=== PATIENT | female | born 1940 | race Caucasian/White ===

== ENCOUNTER 2019-04-19 07:24 | Emergency (ER) | payer MEDICARE, OTHER, SELFPAY ==
[2019-04-19 07:30] VITALS: BP 152/58; PULSE 79; RESP 22; TEMP 36.8; O2SAT 100
[2019-04-19 07:37] LABS: Add Manual Diff / Slide Review NO; Basophils Absolute Auto 100 /uL (0-100); Basophils Percent Auto 0.3 % (0-2); Eosinophils Absolute Auto 0 /uL (0-450); Eosinophils Percent Auto 0.1 % (2-4); Hematocrit 40.4 % (36-46); Lymphocytes Absolute Auto 2300 /uL (1100-4500); Mean Corpuscular HGB Conc 34.8 % (30-36); Mean Corpuscular Hemoglobin 30.2 PG (26-34); Mean Corpuscular Volume 86.8 fL (80-100); Monocytes Absolute Auto 1300 /uL (0-900); Monocytes Percent Auto 7.6 % (3-14); Neutrophils Absolute Auto 12800 /uL (1500-7000); Platelet Count 237 X10^3/uL (150-400); Red Blood Cell Count 4.65 X10^6/uL (4.0-5.2); Red Cell Distribution Width 13.5 % (11.6-14.8); White Blood Cell Count 16.4 X10^3/uL (4.5-11.0)
[2019-04-19] MEDS: SODIUM CHLORIDE 0.9% 1,000 ML 1000 ML IV (07:37)
[2019-04-19] MEDS: ONDANSETRON 4 MG/2 ML INJ IV (07:37)
[2019-04-19 07:47] LABS: Alanine Aminotransferase 20 IU/L (9-52); Albumin 4.3 g/dL (3.5-5.0); Albumin Globulin Ratio 1.4 (1.0-2.8); Alkaline Phosphatase 65 U/L (38-126); Aspartate Aminotransferase 31 IU/L (14-36); Bilirubin Total 0.5 mg/dL (0.2-1.3); Blood Urea Nitrogen 13 mg/dL (7-17); Calcium 9.7 mg/dL (8.4-10.2); Carbon Dioxide 27 mmol/L (22-32); Chloride 98 mmol/L (98-107); Creatine Kinase 70 U/L (30-135); Estimated Glomerular Filt Rate > 60.0 mL/min (>60); Glucose 140 mg/dL (80-110); HEMOLYSIS < 15 (0-50); Lipase 114 U/L (23-300); Sodium 136 mmol/L (137-145); Total Protein 7.3 g/dL (6.3-8.2)
[2019-04-19 07:56] LABS: Potassium 2.5 mmol/L (3.4-5.1)
[2019-04-19 07:58] LABS: Troponin I 0.013 ng/mL (0.01-0.034)
--- NOTE | 2019-04-19 08:05 | ED.NAVMDI ---
HPI - Nausea/Vomiting/Diarrhea General Chief complaint: Nausea/Vomiting/Diarrhea Stated complaint: weakness Time Seen by Provider: 04/19/19 07:29 Source: patient and EMS Mode of arrival: EMS Limitations: no limitations History of Present Illness HPI Narrative: Patient comes emergency department complaining feeling nauseated for the last few days and dry heaving last night. Patient states that she has been down in [place] where she has lived part-time with her . However, her recently , so her son drove her up from [place] a few days ago. Patient states that toward the end of the trip, she was beginning to feel nauseated and tired. Patient denies any abdominal pain. No chest pain or shortness of breath. No diarrhea. No dysuria or back pain that is new. No fevers. No cough. No calf pain or swelling. Patient states that she did not vomit the 1st day that she felt nauseated, and the 2nd day, her nausea seemed a little better. She states she did not have much of an appetite, and 8 only soup, gin drill, and crackers. However, these did stay down. Then, last night, she woke up feeling nauseated again and began to have dry heaves. Patient states that she is still feeling nauseated at this time. She denies any sick contacts. She states that she feels that she drink plenty of water in [place], though her [id number] states that she feels the patient became dehydrated on the trip up from [place]. Patient states she is also in the midst of planning her 's memorial service, which will be coming up in a few days. She states that she has a history of hypertension only, and takes hydrochlorothiazide and potassium. No recent dose changes in her medications. Related Data Home Medications Medication Instructions Recorded Confirmed hydrochlorothiazide 25 mg PO DAILY 04/19/19 04/19/19 potassium chloride [Klor-Con M20] 20 meq PO DAILY 04/19/19 04/19/19 Previous Rx's Medication Instructions Recorded ondansetron 4 mg PO Q6H PRN #14 tab 04/19/19 Allergies Allergy/AdvReac Type Severity Reaction Status Date / Time No Known Drug Allergies Allergy Verified 04/19/19 07:36 Review of Systems Review of Systems ROS Unobtainable: All systems reviewed & are unremarkable except as noted in HPI and below Constitutional Constitutional: Denies chills, Denies fatigue, Denies fever(s), Denies frequent falls, Denies lethargy and Denies weakness Eyes Eyes: Denies change in vision, Denies eye discharge, Denies irritation and Denies loss of vision ENT Ears, Nose, Mouth, and Throat: Denies change in voice, Denies dizziness, Denies neck pain, Denies sore throat and Denies throat swelling Cardiovascular Cardiovascular: Denies chest pain, Denies irregular heart rhythm, Denies lightheadedness, Denies palpitations, Denies dyspnea, Denies dyspnea on exertion and Denies orthopnea Respiratory Respiratory: Denies cough, Denies dyspnea, Denies dyspnea on exertion and Denies wheezing Gastrointestinal Gastrointestinal: Denies abdominal pain, Denies change in bowel habits, Denies diarrhea, Reports nausea and Denies vomiting Genitourinary Genitourinary: Denies hematuria, Denies flank pain, Denies urinary incontinence and Denies urinary urgency Musculoskeletal Musculoskeletal: Denies back pain, Denies muscle weakness, Denies neck pain, Denies numbness and Denies tingling Integumentary/Breasts Skin/Breast: Denies pruritus, Denies erythema, Denies rash and Denies wounds Neurologic Neurologic: Denies behavioral changes, Denies confusion, Denies dizziness, Denies frequent falls, Denies loss of vision, Denies numbness, Denies tingling and Denies weakness Psychiatric Psychiatric: Denies anxiety, Denies behavioral changes, Denies confusion, Denies depression, Denies homicidal ideation and Denies suicidal ideation Endocrine Endocrine: Denies fatigue, Denies flushing and Denies palpitations Hematologic/Lymphatic Hematologic/Lymphatic: Denies easy bruising Allergic/Immunologic Allergic/Immunologic: Denies urticaria, Denies throat swelling and Denies wheezing [facility] Medical History HTN (hypertension) (Acute) Surgical History No pertinent past surgical history (Acute) Social History Smoking Status: Former smoker Social History Smoking Status: Former smoker Exam Initial Vital Signs Initial Vital Signs: Vital Signs Temperature 98.2 F 04/19/19 07:30 Pulse Rate 79 04/19/19 07:30 Respiratory Rate 22 04/19/19 07:30 Blood Pressure 152/58 H 04/19/19 07:30 Pulse Oximetry 100 04/19/19 07:30 Const General: cooperative and well developed Nutritional Appearance: well nourished Orientation: alert, awake, oriented x3 and not confused [facility] Head: normocephalic and atraumatic Ears: external ears normal Nose: external nose normal and No nasal discharge Face and sinus: face symmetric and No dry mucous membranes Mouth: oral mucosae normal and moist mucous membranes Teeth and gingiva: dentition normal Eyes General: appearance normal, both eyes and all related structures Eyelids: eyelids normal Conjunctivae: conjunctivae normal Sclera: sclerae normal Pupils: PERRL EOM: EOM intact bilaterally Neck Neck: normal visual inspection, trachea midline, No lymphadenopathy, No midline deformity and No JVD Lymphatic: No lymphedema Chest Chest: normal inspection of the chest Resp Effort & Inspection: normal respiratory effort, able to speak in complete sentences, no respiratory distress and no use of accessory muscles Auscultation: clear to auscultation bilaterally, no rales, no rhonchi and no wheezes Cardio Rate: regular rate Rhythm: regular rhythm Heart Sounds: no click, no gallops, no murmurs and no rubs Pulses: normal peripheral pulses GI Inspection: non-distended Palpation: soft, no hepatosplenomegaly, No guarding, No pulsatile mass and No tender Auscultation: normal bowel sounds Back/Spine/Pelvis Back: No CVA tenderness Cervical Spine: cervical ROM normal and No pain with cervical ROM Thoracic/Lumbar Spine: thoracic and lumbar spine normal to inspection Skin General: no rashes or lesions noted, No jaundice and No petechiae Neuro General: alert, oriented x3, gait normal and no focal motor deficits Speech: speech normal Extrem General: full ROM, no pedal edema and no calf tenderness Psych Appearance: well kempt Mental Status: mental status grossly normal Attitude: cooperative Thought Content: normal and suicidality Judgment: judgment good Course Course Course Narrative: Patient was worked up with labs, UA, EKG, chest x-ray, and ultimately, head CT, and treated with IV fluids, Zofran, and later, potassium, when her potassium was found to be 2.5. Patient was treated with IV potassium in the emergency department. She was able to tolerate p.o. fluids without vomiting. I discussed with the patient that other than a leukocytosis, which is nonspecific at this point, her workup has been found to be negative. We have discussed home management of the symptoms with Zofran and clear liquids, as well as oral potassium replacement starting tomorrow. We have discussed the usual indications for return. There is no indication for admission at this time. Orders Ordered: Discontinued Medications Diphenhydramine HCl (Benadryl) 12.5 mg IV NOW ONE Stop: 04/19/19 09:16 Last Admin: 04/19/19 09:50 Dose: 12.5 mg Documented by: KARIN Sodium Chloride (Normal Saline 0.9%) 1,000 mls @ 1,000 mls/hr IV BOLUS ONE Stop: 04/19/19 08:28 Last Infusion: 04/19/19 09:46 Dose: 0 mls/hr Documented by: Admin: 04/19/19 07:37 Dose: 1,000 mls/hr Documented by: NAMAN Potassium Chloride 20 meq/ (Sodium Chloride) 260 mls @ 130 mls/hr IV NOW ONE Stop: 04/19/19 10:11 Last Infusion: 04/19/19 10:40 Dose: 0 mls/hr Documented by: KARIN Cosigned by: NAMAN Admin: 04/19/19 08:55 Dose: 130 mls/hr Documented by: KARIN Cosigned by: DELPHINEONESherri Ondansetron HCl (Zofran) 4 mg IV NOW ONE Stop: 04/19/19 07:30 Last Admin: 04/19/19 07:37 Dose: 4 mg Documented by: NAMAN Prochlorperazine (Compazine) 10 mg IV NOW ONE Stop: 04/19/19 09:16 Last Admin: 04/19/19 09:50 Dose: 10 mg Documented by: KARIN Vital Signs Vital signs: Vital Signs - 8 hr 04/19/19 07:30 Temperature 98.2 F Pulse Rate 79 Respiratory Rate 22 Blood Pressure 152/58 H Pulse Oximetry 100 MDM - Nausea/Vomiting/Diarrhea Medical Records Attestation: I reviewed the patient's medical records. Lab Data Attestation: I reviewed the patient's lab results. Result diagrams: 04/19/19 07:15 04/19/19 07:15 Labs: Lab Results 04/19/19 04/19/19 04/19/19 Range/Units 07:15 07:15 09:00 WBC 16.4 H (4.5-11.0) X10^3/uL RBC 4.65 (4.0-5.2) X10^6/uL Hgb 14.0 (12.0-16.0) g/dL Hct 40.4 (36-46) % MCV 86.8 (80-100) fL MCH 30.2 (26-34) PG MCHC 34.8 (30-36) % RDW 13.5 (11.6-14.8) % Plt Count 237 (150-400) X10^3/uL Neut % (Auto) 78.0 H (50-75) % Lymph % (Auto) 14.0 L (25-40) % Holt % (Auto) 7.6 (3-14) % Eos % (Auto) 0.1 L (2-4) % Baso % (Auto) 0.3 (0-2) % Neut # (Auto) 82454 H (2072-4236) /uL Lymph # (Auto) 2300 (6010-5278) /uL Holt # (Auto) 1300 H (0-900) /uL Eos # (Auto) 0 (0-450) /uL Baso # (Auto) 100 (0-100) /uL Sodium 136 L (137-145) mmol/L Potassium 2.5 L* (3.4-5.1) mmol/L Chloride 98 (98-107) mmol/L Carbon Dioxide 27 (22-32) mmol/L BUN 13 (7-17) mg/dL Creatinine 0.50 L (0.52-1.04) mg/dL Estimated GFR > 60.0 (>60) mL/min BUN/Creatinine Ratio 26.0 H (6-22) Glucose 140 H (80-110) mg/dL Calcium 9.7 (8.4-10.2) mg/dL Total Bilirubin 0.5 (0.2-1.3) mg/dL AST 31 (14-36) IU/L ALT 20 (9-52) IU/L Alkaline Phosphatase 65 (38-126) U/L Total Creatine Kinase 70 (30-135) U/L CK-MB (CK-2) TNP CK-MB (CK-2) Rel Index TNP Troponin I 0.013 (0.01-0.034) ng/mL Total Protein 7.3 (6.3-8.2) g/dL Albumin 4.3 (3.5-5.0) g/dL Globulin 3.0 (1.7-4.1) g/dL Albumin/Globulin Ratio 1.4 (1.0-2.8) Lipase 114 (23-300) U/L Urine Color Yellow Urine Appearance Clear Urine pH 7.0 (4.5-8.0) Ur Specific [place] 1.010 (1.000-1.035) Urine Protein Trace H (Negative) Urine Glucose (UA) Negative (Negative) g/dL Urine Ketones 2+ H (NEGATIVE) Urine Occult Blood Negative (Negative) Urine Nitrate Negative (Negative) Urine Bilirubin Negative (NEGATIVE) Urine Urobilinogen 0.2 (0.2) E.U./dL Ur Leukocyte Esterase Negative (NEGATIVE) Urine RBC None seen (0-5/HPF) Urine WBC None seen (0-5/HPF) Ur Squamous Epith Cells 1-5 /hpf (0-5/HPF) Urine Bacteria None seen (None) Urine Mucus 2+ H (Negative) Ur Culture Indicated? Cult not indicated Imaging Data Chest x-ray: Radiologist's impression: PROCEDURE: XR CHEST 1V INDICATIONS: central line placement TECHNIQUE: One view of the chest was acquired. COMPARISON: None. FINDINGS: Surgical changes and devices: None. Lungs and pleura: On this semiupright portable chest examination, no large pneumothorax or large pleural effusions are seen. No focal infiltrates are seen. Lungs are hyperexpanded. Mediastinum: The cardiac contours are within normal limits. The aorta demonstrates calcification and tortuosity. Bones and chest wall: Age-appropriate bony degenerative changes are seen. No suspicious bony lesions. Overlying soft tissues appear unremarkable. IMPRESSION: No central line is seen. Portable chest within normal limits, with hyperexpanded lungs noted. Dictated by: Dyllan Jara M.D. on 04/19/2019 at 9:36 Approved by: Dyllan Jara M.D. on 04/19/2019 at 9:36 CT scan - head: Radiologist's impression: PROCEDURE: CT HEAD/BRAIN WO CON INDICATIONS: altered loc TECHNIQUE: Noncontrast 4.5 mm thick angled axial sections acquired from the foramen magnum to the vertex, with coronal and sagittal reformats. For radiation dose reduction, the following was used: automated exposure control, adjustment of mA and/or kV according to patient size. COMPARISON: None. FINDINGS: Image quality: Excellent. CSF spaces: Basal cisterns are patent. No extra-axial fluid collections. The ventricles are symmetric in size and shape. Brain: No intracranial bleeds or masses. There is cerebral volume loss for age, with resultant ventricular and sulcal prominence. There are periventricular and deep white matter chronic small vessel ischemic changes. There is intracranial internal carotid artery atherosclerosis. Skull and face: Calvarium and visualized facial bones appear intact, without suspicious lesions. Note is made of bilateral globe surgery, likely related to lens replacements. Sinuses: Visualized sinuses and mastoids are clear. IMPRESSION: Unremarkable intracranial study for age, without an imaging explanation for the presenting symptoms. Note is made of age-appropriate brain parenchymal volume loss and chronic small vessel ischemic changes. Dictated by: Dyllan Jara M.D. on 04/19/2019 at 9:48 Approved by: Dyllan Jara M.D. on 04/19/2019 at 9:49 ECG Data Attestation: I personally reviewed and interpreted this ECG as follows: (See below) Interpretation: Twelve lead EKG performed April 19, 2019 at 7:29 a.m., as follows: Regular ventricular rhythm with a rate of 74 beats per minute [place] interval 201 millisecond QRS duration 154 millisecond QTC interval [address] T wave changes Interpretation: Normal sinus rhythm; right bundle-branch block; left anterior fascicular block; no signs of acute ischemia; abnormal EKG as interpreted by ED MD. Discharge Plan Departure Patient Disposition: Home Clinical Impression: Acute vomiting Discharge Date/Time: 04/19/19 12:18 Instructions: DI for Vomiting -- Adult Activity Restrictions/Additional Instructions: Your labs showed a mild elevation of your white blood cell count and moderately decreased potassium. The white cells are most likely elevated, secondary to your vomiting illness. There is no evidence of any bacterial infection at this time. We will have you double your potassium to 40 mg a day instead of 20, for the next week. Please also take the nausea medication, as needed. Prescriptions: New ondansetron 4 mg tablet,disintegrating 4 mg PO Q6H PRN (Reason: nausea and vomiting) Qty: 14 RF: 0 No Action potassium chloride [Klor-Con M20] 20 mEq Tablet,Er Particles/Crystals 20 meq PO DAILY RF: 0 hydrochlorothiazide 25 mg Tablet 25 mg PO DAILY RF: 0 Referrals: [facility] [Provider Group]
[2019-04-19] MEDS: POTASSIUM CHLORIDE 20 MEQ in SODIUM CHLORIDE 0.9% 250 ML 130 ML IV (08:55)
--- NOTE | 2019-04-19 09:19 | DI.CT.S_ITS ---
PROCEDURE: CT HEAD/BRAIN WO CON INDICATIONS: altered loc TECHNIQUE: Noncontrast 4.5 mm thick angled axial sections acquired from the foramen magnum to the vertex, with coronal and sagittal reformats. For radiation dose reduction, the following was used: automated exposure control, adjustment of mA and/or kV according to patient size. COMPARISON: None. FINDINGS: Image quality: Excellent. CSF spaces: Basal cisterns are patent. No extra-axial fluid collections. The ventricles are symmetric in size and shape. Brain: No intracranial bleeds or masses. There is cerebral volume loss for age, with resultant ventricular and sulcal prominence. There are periventricular and deep white matter chronic small vessel ischemic changes. There is intracranial internal carotid artery atherosclerosis. Skull and face: Calvarium and visualized facial bones appear intact, without suspicious lesions. Note is made of bilateral globe surgery, likely related to lens replacements. Sinuses: Visualized sinuses and mastoids are clear. IMPRESSION: Unremarkable intracranial study for age, without an imaging explanation for the presenting symptoms. Note is made of age-appropriate brain parenchymal volume loss and chronic small vessel ischemic changes. Dictated by: Dyllan Jara M.D. on 04/19/2019 at 9:48 Approved by: Dyllan Jara M.D. on 04/19/2019 at 9:49
--- NOTE | 2019-04-19 09:19 | DI.RAD.S_ITS ---
PROCEDURE: XR CHEST 1V INDICATIONS: central line placement TECHNIQUE: One view of the chest was acquired. COMPARISON: None. FINDINGS: Surgical changes and devices: None. Lungs and pleura: On this semiupright portable chest examination, no large pneumothorax or large pleural effusions are seen. No focal infiltrates are seen. Lungs are hyperexpanded. Mediastinum: The cardiac contours are within normal limits. The aorta demonstrates calcification and tortuosity. Bones and chest wall: Age-appropriate bony degenerative changes are seen. No suspicious bony lesions. Overlying soft tissues appear unremarkable. IMPRESSION: No central line is seen. Portable chest within normal limits, with hyperexpanded lungs noted. Dictated by: Dyllan Jara M.D. on 04/19/2019 at 9:36 Approved by: Dyllan Jara M.D. on 04/19/2019 at 9:36
[2019-04-19 09:48] VITALS: PULSE 79; RESP 18; O2SAT 100
[2019-04-19 09:50] VITALS: BP 158/65; PULSE 76
[2019-04-19] MEDS: diphenhydrAMINE 50 MG/ML VIAL 12.5 MG IV (09:50)
[2019-04-19] MEDS: PROCHLORPERAZINE 10 MG/2 ML VIAL IV (09:50)
[2019-04-19 10:23] LABS: Appearance Urine UA CLEAR; Bacteria Urine None Seen; Bilirubin Urine UA NEGATIVE (NEGATIVE); Color Urine UA YELLOW; Glucose Urine UA NEGATIVE (Negative); Ketones Urine UA 2+ (NEGATIVE); Leukocyte Esterase Urine UA NEGATIVE (NEGATIVE); Nitrite Urine UA NEGATIVE (Negative); Occult Blood Urine UA NEGATIVE (Negative); Protein Urine UA TRACE (Negative); RBC Urine None Seen (0-5/HPF); Urobilinogen Urine UA 0.2 E.U./dL (0.2); WBC Urine None Seen (0-5/HPF)
[2019-04-19 10:32] LABS: Culture Indicated Urine Cult Not Indicated; Mucus Urine 2+ (Negative); Squamous Epithelial Cell Urine 1-5 /HPF (0-5/HPF)
[2019-04-19 11:02] VITALS: BP 142/76; PULSE 85; RESP 14; O2SAT 98
== END 2019-04-19 12:18 | disposition home or self-care (01) ==
PROVIDERS: Emergency Provider Emergency Medicine
DX: R11.2 Nausea with vomiting, unspecified (principal); R40.4 Transient alteration of awareness; R94.31 Abnormal electrocardiogram [ECG] [EKG]
CPT/HCPCS: 70450; 71045; 80053; 81001; 82550; 83690; 84484; 85025; 93005; 96361; 96365; 96366; 96374; 96375; 99283; 99285; J0780; J1200; J2405; J3480

== ENCOUNTER → 2021-01-27 13:16 | Outpatient (CLI) | payer MEDICARE, OTHER, SELFPAY ==
[2021-01-27 14:12] LABS: COVID19 -Nasal RAPID Negative (Negative)
[2021-01-27 14:32] LABS: Add Manual Diff / Slide Review NO; Basophils Absolute Auto 0 /uL (0-100); Basophils Percent Auto 0.5 % (0-2); Eosinophils Absolute Auto 100 /uL (0-450); Eosinophils Percent Auto 1.3 % (2-4); Hematocrit 36.8 % (36-46); Hemoglobin 12.4 g/dL (12.0-16.0); Lymphocytes Absolute Auto 2400 /uL (1100-4500); Lymphocytes Percent Auto 29.8 % (25-40); Mean Corpuscular HGB Conc 33.6 % (30-36); Mean Corpuscular Hemoglobin 29.6 PG (26-34); Monocytes Absolute Auto 1000 /uL (0-900); Monocytes Percent Auto 12.3 % (3-14); Neutrophils Absolute Auto 4600 /uL (1500-7000); Neutrophils Percent Auto 56.1 % (50-75); Platelet Count 168 X10^3/uL (150-400); Red Blood Cell Count 4.18 X10^6/uL (4.0-5.2); Red Cell Distribution Width 13.8 % (11.6-14.8); White Blood Cell Count 8.1 X10^3/uL (4.5-11.0)
[2021-01-27 14:50] LABS: Alanine Aminotransferase 22 IU/L (<35); Albumin 3.8 g/dL (3.5-5.0); Albumin Globulin Ratio 1.3 (1.0-2.8); Alkaline Phosphatase 55 U/L (38-126); Aspartate Aminotransferase 31 IU/L (14-36); BUN Creatinine Ratio 23.1 (6-22); Bilirubin Total 0.4 mg/dL (0.2-1.3); Blood Urea Nitrogen 12 mg/dL (7-17); Calcium 9.6 mg/dL (8.4-10.2); Carbon Dioxide 27 mmol/L (22-32); Chloride 102 mmol/L (98-107); Estimated Glomerular Filt Rate > 60.0 mL/min (>60); Globulin 2.9 g/dL (1.7-4.1); Glucose 90 mg/dL (80-110); HEMOLYSIS < 15 (0-50); Potassium 4.4 mmol/L (3.4-5.1); Sodium 134 mmol/L (137-145); Total Protein 6.7 g/dL (6.3-8.2)
== END ==
PROVIDERS: Referring Provider Specialist; Visit Provider Specialist
DX: Z20.822 Contact with and (suspected) exposure to COVID-19 (principal); K80.10 Calculus of gallbladder with chronic cholecystitis without obstruction; K83.09 Other cholangitis
CPT/HCPCS: 36415; 80053; 85025; 87635; C9803

== ENCOUNTER 2021-01-28 09:34 | Inpatient (IN) | payer MEDICARE, OTHER, SELFPAY ==
[2021-01-26 08:08] VITALS: BMI 22.2
[2021-01-28] VITALS (16 sets, daily range): BP systolic 103–158; BP diastolic 55–78; PULSE 63–95; RESP 9–18; TEMP 36.4–37.2; O2SAT 92–99; BMI 22.2
--- NOTE | 2021-01-28 | PATH_ITS ---
[facility] Accession Number: [id number] . 01 Material submitted: . gallbladder - GALLBLADDER AND CONTENTS . 02 Diagnosis: Gallbladder and Contents: Acute and chronic cholecystitis, cholesterolosis, and cholelithiasis. No definite cystic duct margin identified; specimen received as multiple fragments. MRV 02/03/2021 1354 Local . 02 Electronically signed: . Jasmyne Jurado MD, Pathologist NPI- [id number] . 01 Gross description: . The specimen is received in formalin and labeled with gallbladder and contents. It consists of a three unoriented, ragged, red-brown, diffusely hemorrhagic gallbladder fragments ranging from 3.4 cm to 4.6 cm in greatest dimension. The identifiable serosa is purple-wells and diffusely congested. The recognizable serosa is pink-wells and diffusely flattened. The emerson average 0.7 cm in thickness and have a rubbery consistency. A cystic duct is not grossly identified. Sectioning reveals [place]ol[place]o-brown to yellow-wells, striated, focally hemorrhagic cut surfaces. A distinct nodule or lesion is not grossly apparent. Also, received is a 3.1 x 2.4 x 1.7 cm rounded black-green bosselated calculus. Teacher Vocal sections are submitted. . Summary of sections: A1-A2 = Gallbladder, retail wireless sales representative, two pieces. ([id number]) /[facility] 01/29/2021 1841 Local . 02 Pathologist provided ICD-10: K80.00, K83.01, K81.0 . 02 CPT . 244900 Performed at: [facility] [address] [place] [address] [address], [place], [place] [id number] MD Cricket Baird MD Phone: [phone] Performed at: 02 [facility] [place] [address] [place] [id number] MD Rebecca Hayes MD Phone: [phone]
--- NOTE | 2021-01-28 | DI.RAD.S_ITS ---
PROCEDURE: XR CHOLANGIOGRAM OPERATIVE INDICATIONS: INTEROPERATIVE CHOLANGIOGRAM COMPARISON: None. FINDINGS: Biliary ducts: The surgeon injected contrast into the biliary ducts after cannulation of the cystic duct stump. Visualized intra- and extrahepatic bile ducts are normal in caliber, without strictures. No intraluminal filling defects to suggest retained ductal stones or sludge. No evidence for iatrogenic ductal injury. Duodenum: Contrast flows promptly through the sphincter of Oddi into the duodenum, which appears normal in caliber. IMPRESSION: 1. Mild extravasation at the cannulation site; otherwise normal operative cholangiogram. Dictated by: Colton Curtis Yolanda Interpreted: Elijah Fernandes MD on 01/28/2021 at 15:21 Transcribed by: LOTTIE on 01/28/2021 at 15:22 Approved by: Elijah Fernandes M.D. on 01/28/2021 at 18:06
[2021-01-28] MEDS: LACTATED RINGERS 1,000 ML 100 ML IV ×3 (09:44→18:46)
--- NOTE | 2021-01-28 11:30 | PM.PREOP ---
Pre-operative Note COVID-19 COVID-19 status: Negative Result date/Date tested (Pos, Neg/Pending): 01/27/21 Interval Note History & Physical reviewed/Exam performed by Physician: Yes Changes to H&P: Yes H&P completed within 30 days and has changed as indicated here:: patient had a right hemicolectomy
[2021-01-28] MEDS: CEFAZOLIN 1 GM VIAL 2 GM IV ×2 (12:39→16:22)
--- NOTE | 2021-01-28 12:54 | SUR.OPER ---
Supine on padded OR bed, head on pillow, safety belt at thigh, gel pads under bilateral arms and secured on padded arm board <90 degrees abduction. Legs uncrossed. Pillow under Knees, Padded footboard in place, gel pad under bilateral feet, Tape over blanket to secure lower legs.
[2021-01-28] MEDS: BUPIVACAINE 0.5% (PF) VIAL 30 ML INJ (13:33)
[2021-01-28] MEDS: IOPAMIDOL 15 ML VIAL 30 ML INJ (14:51)
--- NOTE | 2021-01-28 16:50 | SUR.PHASEI ---
Received to PACU after general anesthesia. Airway patent, self maintained. Report from LENORA Sweeney and Dr Jimenez.
[2021-01-28] MEDS: HYDROMORPHONE 2 MG INJ IV ×3 (16:58→17:20)
[2021-01-28] MEDS: hydrOXYzine 50 MG/ML INJ 25 MG IM (17:00)
--- NOTE | 2021-01-28 17:08 | P.OP_ITS ---
Operative Date/Time/Diagnoses Date of procedure: 01/28/21 Time of procedure: 17:08 Pre-op diagnosis: Cholelithiasis with cholecystitis chronic with a cholecystostomy tube. History of cholangitis. Post-op diagnosis: same Procedure & Clinicians Procedure: Laparoscopic converted open cholecystectomy with intraoperative cholangiogram. Same procedure as scheduled: Yes Indications: Patient with an indwelling cholecystostomy tube you desired to remove her gallbladder and the tube. Surgeon: Bryce Brown Click Yes if Unassisted: Yes Anesthesia Type: General Operative Notes Findings: Numerous intra-abdominal adhesions. A markedly thickened chronically inflamed inflamed gallbladder with adhesions to surrounding bowel. Normal ductal system. Cholangiogram was shot through the distal gallbladder. Closure Type: primary Specimen(s): other (Gallbladder and contents) Prosthetic devices, grafts, tissues, transplants, or devices: None Applied: drain(s) (7 mm Kolby-Galvan drain in the gallbladder fossa and the knee the cystic duct region.) Estimated Blood Loss (mL): 175 Blood products transfused: none Procedure in detail: The patient was placed supine on the operating room table underwent general endotracheal anesthesia. She was prepped and draped in the usual fashion excluding the percutaneous entrance of the cholecystostomy tube from the operative field. This area was prepped however prior to draping. Small incision was made adjacent to the umbilicus and an old scar and carried under direct vision in the peritoneal cavity. I entered it with great caution safely and insufflated the abdomen. Two additional ports were placed in atypical positions because of intra-abdominal adhesions. I began to try to take these down but very early on it was apparent that the adhesions were too dense and extensive to safely do this operation laparoscopically. The ports were all removed. Appropriate instruments were obtained and a subcostal incision was made on the right and carried down through rectus muscle and posterior fascia into the abdomen. There were very dense adhesions in the region and I had to do a very careful adhesiolysis ultimately identifying the gallbladder as a hard thickened structure with large palpable stones. I dissected the intestine off of the gallbladder leaving thin layers of the superficial gallbladder wall on the intestine in places. Once freed I could clearly identify the gallbladder and palpate down to its distal end. The gallbladder was grasped and I began to dissect at the top of the gallbladder after gaining good exposure. Using principally cautery with some blunt dissection with peanuts I dissected the gallbladder out of its bed in the liver. There was very little blood loss during this portion of the procedure. I Intentionally opened the top and removed a large stone that was interfering with the dissection. This also allowed me to identify the inside wall so I could skive close to the gallbladder and leave the liver bed intact. The dissection was carefully and slowly carried down toward the caitlin. I could feel 1 large stone that appeared to be impacted in the end of the gallbladder. I cut the gallbladder intentionally down toward that area and pulled the stone out. There was backflow of bile. I removed portions of the gallbladder wall to allow for easier visualization and decided to do a cholangiogram through this gallbladder stump. Cholangiocatheter was inserted and it was secured with 2-0 Vicryl and the opening in the gallbladder wall was oversewn with 2-0 Vicryl. Once it appeared to be watertight I performed a cholangiogram that showed free flow into the residual gallbladder and a cystic duct which was actually fairly long and a normal caliber ductal system with free flow into the duodenum. There were no filling defects identified. Confident now of my landmarks I continued to dissect down toward the end of the gallbladder staying right on the gallbladder wall. I used a right angle to separate out what appeared to be vascular structures at the normal location of the cystic artery and I ligated these with both 3-0 Vicryl and 2 0 silk ties. I carefully dissected down right to what a the edge of the gallbladder which could be palpated internally and sutured the structures with a 2-0 Vicryl circumferential suture and then transected the gallbladder further away from this ligature on the end of the gallbladder. I then oversewed the stump with 2-0 Vicryl running suture To ensure hemostasis and to ensure that there would be no back leakage. I had to do additional it he is a lysis in order to free the peritoneal and fascial edges so that I could close the patient. The fascia was closed in 2 layers with running 0 0 PDS and occasional interrupted 2-0 Vicryl sh. The muscle layer was irrigated prior to closure the outer layer of fascia. The subcu was loosely reapproximated with 4-0 Vicryl here and at the umbilicus. The skin was closed with hernesto in all areas. L ocal anesthetic was infiltrated around the subcostal wound prior to its closure. Dressings were applied the patient was awakened and taken to recovery room good condition. Complications: none Post-operative Condition: stable Disposition: PACU Plan for aftercare: Admit
--- NOTE | 2021-01-28 17:21 | SUR.PHASEI ---
Report to Halle Boston RN
[2021-01-28] MEDS: OXYCODONE IR 5 MG TABLET PO (17:43)
--- NOTE | 2021-01-28 17:46 | SUR.PHASEI ---
Applesauce and water given prior to PO Rx. Patient quiet, resting intermittently with eyes closed. VSS
--- NOTE | 2021-01-28 18:21 | SUR.PHASEI ---
1802 To room 205 after report was called to LENORA Martinez. Patient transferred into the bed. RN and ETHYLENE PLANT OPERATOR stated that they would settle the patient (including VS and SCD's). Pt placed on O2 at 2LNP. Awake and pleasant. No c/o pain, has denied nausea. Clothing bag placed in the closet. Dressing and drain examined with RN and ETHYLENE PLANT OPERATOR present. Stable and calm.
[2021-01-28] MEDS: HYDROMORPHONE 0.5 MG INJ IV (18:44)
[2021-01-28] MEDS: METOPROLOL IR 50 MG TABLET PO (22:14)
[2021-01-29] VITALS (7 sets, daily range): BP systolic 111–154; BP diastolic 61–74; PULSE 62–88; RESP 14–24; TEMP 36.3–37.3; O2SAT 96–100
[2021-01-29] MEDS: HYDROMORPHONE 0.5 MG INJ IV ×2 (04:55→16:34)
[2021-01-29] MEDS: LACTATED RINGERS 1,000 ML 100 ML IV ×2 (05:21→15:49)
[2021-01-29 06:31] LABS: Add Manual Diff / Slide Review NO; Basophils Absolute Auto 0 /uL (0-100); Eosinophils Absolute Auto 0 /uL (0-450); Hematocrit 33.8 % (36-46); Hemoglobin 11.3 g/dL (12.0-16.0); Lymphocytes Absolute Auto 1400 /uL (1100-4500); Lymphocytes Percent Auto 9.5 % (25-40); Mean Corpuscular HGB Conc 33.3 % (30-36); Mean Corpuscular Hemoglobin 29.4 PG (26-34); Mean Corpuscular Volume 88.3 fL (80-100); Monocytes Absolute Auto 1500 /uL (0-900); Monocytes Percent Auto 10.4 % (3-14); Neutrophils Absolute Auto 11900 /uL (1500-7000); Neutrophils Percent Auto 80.1 % (50-75); Platelet Count 145 X10^3/uL (150-400); Red Blood Cell Count 3.83 X10^6/uL (4.0-5.2); Red Cell Distribution Width 13.8 % (11.6-14.8); White Blood Cell Count 14.8 X10^3/uL (4.5-11.0)
[2021-01-29 06:38] LABS: Alanine Aminotransferase 29 IU/L (<35); Albumin 3.1 g/dL (3.5-5.0); Albumin Globulin Ratio 1.2 (1.0-2.8); Alkaline Phosphatase 43 U/L (38-126); Aspartate Aminotransferase 43 IU/L (14-36); BUN Creatinine Ratio 26.5 (6-22); Bilirubin Total 0.3 mg/dL (0.2-1.3); Blood Urea Nitrogen 13 mg/dL (7-17); Carbon Dioxide 29 mmol/L (22-32); Chloride 104 mmol/L (98-107); Estimated Glomerular Filt Rate > 60.0 mL/min (>60); Globulin 2.6 g/dL (1.7-4.1); Glucose 124 mg/dL (80-110); HEMOLYSIS < 15 (0-50); Potassium 4.8 mmol/L (3.4-5.1); Sodium 135 mmol/L (137-145); Total Protein 5.7 g/dL (6.3-8.2)
[2021-01-29] MEDS: SENNOSIDES 8.6 MG TABLET 17.2 MG PO (09:58)
[2021-01-29] MEDS: ACETAMINOPHEN 325 MG TABLET 650 MG PO ×2 (09:58→16:35)
[2021-01-29] MEDS: METOPROLOL IR 50 MG TABLET PO ×2 (09:58→19:59)
[2021-01-29] MEDS: POTASSIUM CHLORIDE 20 MEQ TAB PO (09:58)
[2021-01-29] MEDS: DOCUSATE 100 MG CAPSULE PO (09:59)
--- NOTE | 2021-01-29 11:48 | PC.NURSE ---
Day shift: Pt doing better w/ pain this AM. Reports ABD pain 2/10. Increase with movement (when OOB). Has taken Tylenol for pain per MAR only on Day shift at this time. Tolerating clears w/ no nausea. Dressings remain CDI. Pt was seen by Dr Brown this AM. Pt's daughter in room for support. JORGE had 20mls serosang this AM. Will continue to monitor. Call light in reach. Agrees to ot get OOB w/o help from staff.
[2021-01-29] MEDS: OXYCODONE IR 5 MG TABLET PO ×2 (12:02→19:59)
--- NOTE | 2021-01-29 12:12 | PM.PNPO.1 ---
Subjective Subjective Date Patient Seen: 01/29/21 Time Patient Seen: 12:12 Interval history: patient post laparoscopic converted open cholecystectomy. It hurts when she takes a deep breath. She is having some abdominal discomfort. No nausea or vomiting. Cautiously taking p.o. liquids. Exam Vital Signs (past 8 hours): - 01/29/21 05:05 01/29/21 05:51 01/29/21 07:55 Temperature 97.8 F 98.4 F Pulse Rate 76 75 Respiratory Rate 14 16 Blood Pressure 152/74 H 129/71 130/62 Pulse Oximetry 96 100 Oxygen Delivery Method Nasal Cannula Oxygen Flow Rate 0 Narrative Exam Narrative: Cooperative pleasant woman no apparent distress. Lungs are clear. Heart regular rate and rhythm but has a murmur in left base P without radiation. Abdomen is scaphoid soft. Dressings are dry intact. Drainage is blood-tinged. Objective Labs Result Diagrams: 01/29/21 05:55 01/29/21 05:55 Labs: Laboratory Results - last 24 hr 01/29/21 01/29/21 05:55 05:55 WBC 14.8 H D RBC 3.83 L Hgb 11.3 L Hct 33.8 L MCV 88.3 MCH 29.4 MCHC 33.3 RDW 13.8 Plt Count 145 L Neut % (Auto) 80.1 H D Lymph % (Auto) 9.5 L D [place] % (Auto) 10.4 Eos % (Auto) 0.0 L Baso % (Auto) 0.0 Neut # (Auto) 92465 H Lymph # (Auto) 1400 [place] # (Auto) 1500 H Eos # (Auto) 0 Baso # (Auto) 0 Sodium 135 L Potassium 4.8 Chloride 104 Carbon Dioxide 29 BUN 13 Creatinine 0.49 L Estimated GFR > 60.0 BUN/Creatinine Ratio 26.5 H Glucose 124 H Calcium 9.0 Magnesium 2.0 Total Bilirubin 0.3 AST 43 H ALT 29 Alkaline Phosphatase 43 Total Protein 5.7 L Albumin 3.1 L Globulin 2.6 Albumin/Globulin Ratio 1.2 [facility] Medical History (Updated 01/26/21 @ 08:44 by Katie Sargent RN) Atrophic pancreas Cholangitis Cholecystitis with cholelithiasis History of abdominal pain (11/2020) HTN (hypertension) Hypokalemia (04/19/19) Sepsis (12/19/20) Surgical History (Updated 01/26/21 @ 08:38 by Katie Sargent RN) History of colon surgery Hx of hysterectomy Family History Mother Pancreatic cancer Daughter Pancreatic cancer Social History marital status: unknown household members: none Smoking Status: Former smoker alcohol intake: never substance use type: does not use Assessment & Plan Post-op Postoperative Procedures: Procedures Operation Date: 01/28/21 10:45 Actual Procedure Side Surgeon p Laparoscopic Converted to Open Cholecystectomy with Intraoperative Cholangiogram and Removal Of Cholecystostomy Tube Bryce Brown MD Postoperative status narrative: Doing pretty much as expected. Will leave drain in today. Work on breathing. Postoperative plan narrative: Supportive care and pain management. Labs noted. Will check a CBC tomorrow. If white count does not begin to fall consider adding an antibiotic. Begin to mobilize. Incentive spirometry.
[2021-01-30] VITALS (7 sets, daily range): BP systolic 116–162; BP diastolic 68–85; PULSE 66–82; RESP 14–20; TEMP 36.1–37.2; O2SAT 93–98
[2021-01-30] MEDS: LACTATED RINGERS 1,000 ML 100 ML IV (01:51)
[2021-01-30] MEDS: OXYCODONE IR 5 MG TABLET PO ×4 (01:56→18:12)
[2021-01-30 07:19] LABS: Add Manual Diff / Slide Review NO; Basophils Absolute Auto 100 /uL (0-100); Basophils Percent Auto 0.8 % (0-2); Eosinophils Absolute Auto 0 /uL (0-450); Eosinophils Percent Auto 0.2 % (2-4); Hematocrit 32.2 % (36-46); Hemoglobin 10.7 g/dL (12.0-16.0); Lymphocytes Absolute Auto 2400 /uL (1100-4500); Lymphocytes Percent Auto 21.3 % (25-40); Mean Corpuscular HGB Conc 33.4 % (30-36); Mean Corpuscular Hemoglobin 29.6 PG (26-34); Mean Corpuscular Volume 88.7 fL (80-100); Monocytes Absolute Auto 1400 /uL (0-900); Monocytes Percent Auto 12.7 % (3-14); Neutrophils Absolute Auto 7200 /uL (1500-7000); Platelet Count 141 X10^3/uL (150-400); Red Blood Cell Count 3.63 X10^6/uL (4.0-5.2); Red Cell Distribution Width 14.1 % (11.6-14.8); White Blood Cell Count 11.1 X10^3/uL (4.5-11.0)
[2021-01-30] MEDS: POTASSIUM CHLORIDE 20 MEQ TAB PO (09:29)
[2021-01-30] MEDS: DOCUSATE 100 MG CAPSULE PO (09:29)
[2021-01-30] MEDS: METOPROLOL IR 50 MG TABLET PO ×2 (09:29→20:49)
[2021-01-30] MEDS: SENNOSIDES 8.6 MG TABLET 17.2 MG PO (09:29)
--- NOTE | 2021-01-30 10:59 | CM.DANOTE ---
Discharge Planning/Care Management DCP: case received, EMR reviewed. Discussed in Team Rounds. Pt is an 80 year old female who is visiting her daughter Aniyah and family in [place]. She admitted 01/28 for a scheduled laproscopic cholecystectomy/ converted to open procedure during the operation. Admission status: SDC to OBS to INPT: on 01/29: confirmed by CHAKA RN Payer: Medicare and [facility] PCP: Dr. Sandoval/[place] Pt is recovering as anticipated. Drain still in. Dr. Brown will be rounding later today. P: home with supportive daughter and family and eventual return to her home in [place]. Pt has her FWW with her in case she needs it as part of her recovery. Pt expresses no concerns re her d/c plan at this time. CM Discharge Assessment Start: 01/30/21 10:48 Freq: Status: Active Protocol: Document 01/30/21 10:57 ITV (Rec: 01/30/21 10:59 ITV [id number]) Discharge Planning Assessment Advance Directives? No History Provided By Patient,Medical Record Prior Living Arrangements House Comment [place] Household Members none Independent with ADL's Yes Is patient alert and oriented? Yes DME Already Rented / Owned FWW / Walker Comment has both. not typically used but has FWW with her while here visiting Discharge Plan Home Transportation Arrangement daughter Aniyah Review Status In Process Pre-Anesthesia Assessment Start: 01/26/21 08:08 Freq: Status: Complete Protocol: Document 01/26/21 08:08 CAB (Rec: 01/26/21 08:31 CAB [id number]) Pre-Anesthesia Assessment Patient Information Reviewed Via Chart Review Comment Outside labs/EKG scanned-COVID screen @ 01/27/21 Seen Specialist in Last 12 Months Yes Specialist Seen Stock Analyst,General surgeon Primary Language Moldovan Apn Required No Height 170.18 cm Weight 64.41 kg Body Mass Index (BMI) 22.2 Anesthesia Review Requested Yes: Surgeon requested re: Medical history alcohol intake never Smoking Status Former smoker Substance Use Type does not use Patient is completely paralyzed or No completely immobile Mental Status Oriented to own ability Is patient on oxygen? No Does patient have M[place]/SOB No Hx Sleep Apnea No Currently Taking a Beta Argenis Yes: Metoprolol Hx SOB Yes Hx Syncope or Dizziness Yes Cardiac Testing Yes: Echo 12/23/20 @ [facility] Hx Pacemaker/ICD No Pacemaker Rep Required? No Comment Cardiac records scanned Gastrointestinal Symptoms Abdominal Pain Comment Cholecystostomy tube placed Urinary Catheter Present No Hx Urinary Self Catheterization No Diabetes No Patient No Lactating No Presence of External or Internal Medical Yes: Cholecystostomy tube Devices Marital Status / Lives With children,none Support System Child/Children Patient Discharge Plan Description Return Home Comment Normally lives in [place], currently residing with daughter r/t medical issues Advance Directives? No
--- NOTE | 2021-01-30 12:54 | PC.NURSE ---
Day shift: Pt tolerating reg diet at this time. She ate 50% and denies any nausea.
--- NOTE | 2021-01-30 12:55 | PM.PNPO.1 ---
Subjective Subjective Date Patient Seen: 01/30/21 Time Patient Seen: 12:55 Interval history: Significant pain getting in and out of bed. Has not ambulated yet. Tolerating diet. Exam Vital Signs (past 8 hours): - 01/30/21 05:27 01/30/21 07:25 01/30/21 12:22 Temperature 98.9 F 99.0 F 99.0 F Pulse Rate 75 80 80 Respiratory Rate 14 16 15 Blood Pressure 143/75 H 148/77 H 143/70 H Pulse Oximetry 97 97 96 Oxygen Delivery Method Room Air Oxygen Flow Rate 0 Narrative Exam Narrative: Gen-elderly woman alert and oriented Abdomen-RUQ incision CDI with hernesto, removed drain SS Objective Labs Result Diagrams: 01/30/21 07:08 01/29/21 05:55 Labs: Laboratory Results - last 24 hr 01/30/21 07:08 WBC 11.1 H RBC 3.63 L Hgb 10.7 L Hct 32.2 L MCV 88.7 MCH 29.6 MCHC 33.4 RDW 14.1 Plt Count 141 L Neut % (Auto) 65.0 Lymph % (Auto) 21.3 L [place] % (Auto) 12.7 Eos % (Auto) 0.2 L Baso % (Auto) 0.8 Neut # (Auto) 7200 H Lymph # (Auto) 2400 [place] # (Auto) 1400 H Eos # (Auto) 0 Baso # (Auto) 100 PFSH Medical History (Updated 01/26/21 @ 08:44 by Katie Sargent RN) Atrophic pancreas Cholangitis Cholecystitis with cholelithiasis History of abdominal pain (11/2020) HTN (hypertension) Hypokalemia (04/19/19) Sepsis (12/19/20) Surgical History (Updated 01/26/21 @ 08:38 by Katie Sargent RN) History of colon surgery Hx of hysterectomy Family History Mother Pancreatic cancer Daughter Pancreatic cancer Social History marital status: unknown household members: none Smoking Status: Former smoker alcohol intake: never substance use type: does not use Assessment & Plan Post-op Postoperative Procedures: Procedures Operation Date: 01/28/21 10:45 Actual Procedure Side Surgeon p Laparoscopic Converted to Open Cholecystectomy with Intraoperative Cholangiogram and Removal Of Cholecystostomy Tube Bryce Brown MD Postoperative status narrative: POD 2 open cholecystectomy doing reasonably well. -Regular diet -Physical therapy consult -Change Oxy to Q4h -Anticipate dc this weekend home with daughter vs rehab pending PT rigobertoal -SCDs and Elainex
--- NOTE | 2021-01-30 14:00 | PT.IIE ---
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) Surgery Performed Operation Date: 01/28/21 10:45 Actual Procedures p Laparoscopic Converted to Open Cholecystectomy with Intraoperative Cholangiogram and Removal Of Cholecystostomy Tube - Bryce Brown MD Medical History (Last Updated 01/26/21 @ 08:44 by Katie Sargent RN) Atrophic pancreas Cholangitis Cholecystitis with cholelithiasis History of abdominal pain (11/2020) HTN (hypertension) Hypokalemia (04/19/19) Sepsis (12/19/20) Physical Therapy Inpatient Evaluation/Re-Eval M1 PT/OT-IP Prior Functional Status Start: 01/30/21 15:59 Freq: NEEDED Status: Active Protocol: Document 01/30/21 14:00 AB (Rec: 01/30/21 16:15 AB [id number]) Medical Review Prior Functional Status Medical History Reviewed Yes Communication able to make needs known Mobility and Gait pt stated that she is independent with all mobilities and ambulation wtihout AD Prior Functional Level (Other details) pt lives in [place] and went to [place] for her surgery. pt has a daughter that lives here in [place] and pt used to work here in the hospital. Social History Household Members none Living Arrangements House Number of Floors (Floors) Two Floors Number of Stairs To Enter/Railing? pt will stay on main level of the house has 4 steps L rail +15 steps L rail to get into the house Home Environment Standard Height Toilet,Walk in Shower Home Equipment Front Wheel Walker,Hand Held Shower Additional Social History Comment pt plans to d/c to her daughter's house. Home set up info is regarding daughter's house M2 PT-IP Current Condition Start: 01/30/21 15:59 Freq: NEEDED Status: Active Protocol: Document 01/30/21 14:00 AB (Rec: 01/30/21 16:15 AB [id number]) Physical Therapy Current Condition Current Condition Evaluation Date 01/30/21 Treatment Diagnosis s/p cholecystectomy; difficulty in walking Onset Date 01/29/21 Precautions Abdominal Surgery Precautions Log Roll,Lifting Restrictions, Gait Belt above Incisional Area M3 PT-IP Subjective Start: 01/30/21 15:59 Freq: NEEDED Status: Active Protocol: Document 01/30/21 14:00 AB (Rec: 01/30/21 16:15 AB [id number]) Subjective Physical Therapy Visit Type Type Initial Evaluation Visit Start Time 14:00 Visit Stop Time 14:48 Total Visit Minutes 48 Number of ACCOUNT EXECUTIVE AGRIBUSINESS Visits 0 Physical Therapy Visit Comments Patient Comments pt is agreeable to do PT Therapy Pain Assessment Pain When Pain Assessed At Rest Pain Present Pain Present Pain Reported Location abdomen Intensity 2 Scale Used Numeric (0 - 10) Pain Management Techniques Modification of Treatment,Re- positioning,Timing of Activity with Medications M4 PT-IP Mobility and Gait Start: 01/30/21 15:59 Freq: NEEDED Status: Active Protocol: Document 01/30/21 14:00 AB (Rec: 01/30/21 16:15 [id number]) PT-Bed Mobility Assessment Rolling Type of Rolling Log Rolling Level of Assist Standby Assistance Supine to Sit Supine to Sit Standby Assistance PT-Transfer Assessment Sit to and From Stand Sit to and from Stand Minimal Assistance,1 Person Assistance,Use of Upper Extremities Equipment Transfer Assistive Device Gait Belt,Front Wheeled Walker Orthotic/Prosthetic Devices or Brace: No Transfers Transfer Destination Chair Transfer Technique ambulated using FWW Transfer Ability Level of Assist Minimal Assistance,1 Person Assistance,Use of Upper Extremities Comments Mobility Comments pt supine in bed and agreed to do PT. educated pt regarding abdominal precautions and log roll bed mobility. pt uses pillow to splint abdominal area. pt completeds supine to sit SBA and cues for techniques. pt was able to sit on EOB SBA. completed sit to stand from EOB min A and pt ambulated in room using FWW CGA to min A. Assessed ambulation without AD and pt completed 20 ft min to mod A and cues. pt with unsteady gait and tends to reach for the wall for steadiness. educated pt on safety and use of FWW at this time and agreed . pt agreed to ambulate in the hallway and completed ~ 75 ft using FWW CGA to occasional min A and cues. pt agreed to sit up on chair. positioned on chair. call light and table placed within reach. Gait Assessment Gait Gait Assistance Required: Contact Guard Assist,Minimum Assistance,Moderate Assistance Distance (Feet) 75 Able to Maintain Weight Bearing Status Yes During Gait Assistive Devices Assistive Device Gait Belt,Front Wheeled Walker Orthotic/Prosthetic Devices or Brace: No Gait Deviations General Gait Pattern Decreased Stride Length, Decreased Feet Clearance Factors Limiting Gait Function Factors Limiting Gait Function Decreased Activity Tolerance, Decreased Strength,Limited Range of Motion,Pain,Poor Balance Comments Gait Comments pls refer to mobility section for details PT-Balance Assessment Sitting Balance and Reactions Static Sitting Balance Ability Good Dynamic Sitting Balance Ability Good Standing Balance and Reactions Static Standing Balance Ability Fair Dynamic Standing Balance Ability Fair Device Used FWW M5 PT-IP Objective Assessments Start: 01/30/21 15:59 Freq: NEEDED Status: Active Protocol: Document 01/30/21 14:00 AB (Rec: 01/30/21 16:15 AB [id number]) Orientation Orientation/Cognition Level of Alertness Alert Orientation Name,Place,Situation Language Function Ability No Deficits Noted Safety Awareness Understands Safety Issues Memory Description No Deficits Noted Gross Range of Motion Lower Extremity ROM Assessment Within Functional Limits Strength Lower Extremity Strength Assessment Within Functional Limits Sensation Assessment Sensation Gross Sensation WNL Muscle Tone Muscle Tone WNL Yes M6 PT-IP Treatment Start: 01/30/21 15:59 Freq: NEEDED Status: Active Protocol: Document 01/30/21 14:00 AB (Rec: 01/30/21 16:15 AB [id number]) Physical Therapy Treatment Education Education Provided Precautions,Safety M7 PT-IP Assessment and Plan Start: 01/30/21 15:59 Freq: NEEDED Status: Active Protocol: Document 01/30/21 14:00 AB (Rec: 01/30/21 16:15 AB [id number]) PT Summary Assessment and Plan Potential Rehabilitation Potential Good Status of Condition at Evaluation Evolving Summary Impairments Pain,ROM,Strength,Balance, Cognition,Bed Mobility, Transfers,Gait,Activity Tolerance Assessment Summary pt requiring CGA to min A with ambulation using FWW. demonstrated with unsteadiness with ambulation without AD and recommending use of FWW at this time and PT to continue working on pt to improve mobility and activity tolerance. pt plans to go home to her daughter's house and stated that her daughter will be able to assist her. will continue to assess progress. Goals Bed Mobility Goal Independent Transfer Goal Independent,Front Wheeled Walker Gait Goal Independent,Front Wheel Walker Gait Distance 200 Other Goals improve ambulation without AD 200 ft SBA up/down 19 steps L rail SBA Days to Meet Goals 10 Frequency of Treatment Frequency Of Treatment Once a Day Treatment Plan Physical Therapy Treatment Plan Bed Mobility Training,Transfer Training,Gait Training, Therapeutic Exercise,Balance Retraining,Post Op Education, Discharge Planning,Hot or Cold Pack,Neuromuscular Re-ed, Coordination Retraining Precautions Abdominal Surgery Precautions Log Roll,Lifting Restrictions, Gait Belt above Incisional Area Recommendations To Nursing Amount of Assist Needed 1 Person Assist Discharge Recommendations PT Discharge Recommendations Home with Assistance,Home Health Transportation Needs at Discharge Private Vehicle
[2021-01-30] MEDS: SODIUM CHLORIDE 0.9% FLUSH 10 ML IV (21:15)
--- NOTE | 2021-01-30 22:55 | PC.NURSE ---
Moderate pain to abdomen; PO oxycodone and pillow splint; BTs active, passing gas; sba with fww; IS 1000, LS diminished at bases; RA=95%; bed alarm and SCDs active
[2021-01-31] MEDS: OXYCODONE IR 5 MG TABLET PO ×4 (03:20→20:00)
[2021-01-31 05:38] VITALS: BP 139/74; PULSE 80; RESP 16; TEMP 36.7; O2SAT 96
[2021-01-31 06:34] LABS: Add Manual Diff / Slide Review NO; Basophils Absolute Auto 100 /uL (0-100); Basophils Percent Auto 0.9 % (0-2); Eosinophils Absolute Auto 100 /uL (0-450); Eosinophils Percent Auto 1.2 % (2-4); Hematocrit 32.8 % (36-46); Lymphocytes Absolute Auto 2300 /uL (1100-4500); Lymphocytes Percent Auto 24.9 % (25-40); Mean Corpuscular HGB Conc 33.6 % (30-36); Mean Corpuscular Hemoglobin 29.9 PG (26-34); Monocytes Absolute Auto 1400 /uL (0-900); Monocytes Percent Auto 15.3 % (3-14); Neutrophils Absolute Auto 5400 /uL (1500-7000); Neutrophils Percent Auto 57.7 % (50-75); Platelet Count 148 X10^3/uL (150-400); Red Blood Cell Count 3.68 X10^6/uL (4.0-5.2); Red Cell Distribution Width 14.3 % (11.6-14.8); White Blood Cell Count 9.4 X10^3/uL (4.5-11.0)
[2021-01-31 07:25] VITALS: BP 146/71; PULSE 82; RESP 16; TEMP 36.6; O2SAT 97
[2021-01-31] MEDS: POTASSIUM CHLORIDE 20 MEQ TAB PO (08:57)
[2021-01-31] MEDS: ENOXAPARIN 40 MG/0.4 ML SYRINGE SUBCUT (08:57)
[2021-01-31] MEDS: SENNOSIDES 8.6 MG TABLET 17.2 MG PO (08:57)
[2021-01-31] MEDS: METOPROLOL IR 50 MG TABLET PO ×2 (08:57→21:30)
[2021-01-31] MEDS: SODIUM CHLORIDE 0.9% FLUSH 10 ML IV ×2 (08:58→21:31)
--- NOTE | 2021-01-31 10:18 | P.PN_ITS ---
Subjective Subjective Date Patient Seen: 01/31/21 Time Patient Seen: 10:19 Interval history: feeling better, had BM Exam Vital Signs (past 8 hours): - 01/31/21 05:38 01/31/21 07:25 Temperature 98.1 F 97.8 F Pulse Rate 80 82 Respiratory Rate 16 16 Blood Pressure 139/74 146/71 H Pulse Oximetry 96 97 Oxygen Delivery Method Room Air Oxygen Flow Rate 0 Narrative Exam Narrative: drain removed, hernesto in skin, no infection. incisional tenderness Objective Labs Result Diagrams: 01/31/21 06:25 01/29/21 05:55 Labs: Laboratory Results - last 24 hr 01/31/21 06:25 WBC 9.4 RBC 3.68 L Hgb 11.0 L Hct 32.8 L MCV 89.0 MCH 29.9 MCHC 33.6 RDW 14.3 Plt Count 148 L Neut % (Auto) 57.7 Lymph % (Auto) 24.9 L [place] % (Auto) 15.3 H Eos % (Auto) 1.2 L Baso % (Auto) 0.9 Neut # (Auto) 5400 Lymph # (Auto) 2300 [place] # (Auto) 1400 H Eos # (Auto) 100 Baso # (Auto) 100 PFSH Medical History (Updated 01/26/21 @ 08:44 by Katie Sargent RN) Atrophic pancreas Cholangitis Cholecystitis with cholelithiasis History of abdominal pain (11/2020) HTN (hypertension) Hypokalemia (04/19/19) Sepsis (12/19/20) Surgical History (Updated 01/26/21 @ 08:38 by Katie Sargent RN) History of colon surgery Hx of hysterectomy Family History Mother Pancreatic cancer Daughter Pancreatic cancer Social History marital status: unknown household members: none Smoking Status: Former smoker alcohol intake: never substance use type: does not use Assessment & Plan Post-op Postoperative Procedures: Procedures Operation Date: 01/28/21 10:45 Actual Procedure Side Surgeon p Laparoscopic Converted to Open Cholecystectomy with Intraoperative Cholangiogram and Removal Of Cholecystostomy Tube Bryce Brown MD Postoperative day: 3 Postoperative status: doing well Postoperative status narrative: s/p lap traci converted to open Postoperative plan: routine post-op care Postoperative plan narrative: Having pain with mobilization Time Spent With Patient Time with patient: less than 15 minutes
[2021-01-31 11:16] VITALS: BP 141/76; PULSE 71; RESP 16; TEMP 36.8; O2SAT 97
--- NOTE | 2021-01-31 14:33 | PC.NURSE ---
SKIN Assessment. I was unable to edit skin assessment on the phyical assessment form. pt has surgical hernesto x3 areas to ABD with a satellite covered in a small Tegaderm where the drain was previously placed. Staple areas CLAIMS CLERK. Minimal serosanguous drainage in tegaderm. Reporting 3-5/10 pain to area managed with Oxycodone. pt has abrasion, FANY, to LLE, which she reports was present upon admission.
--- NOTE | 2021-01-31 14:37 | PC.NURSE ---
AM shift note. pt AO and receptive to care. Reporting tolerable 3-5/10 pain throughout shift managed with Oxycodone 5mg at 0930 and 1400. pt up 1PA to BR, had large loose BM this AM. Showered. Incision areas FANY with the old drain site covered with a small Tegaderm with minimal serosangous drainage. PIV flushing and saline locked. Tolerating a general diet without concerns.
--- NOTE | 2021-01-31 15:37 | PT.IPTN ---
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) Surgery Performed Operation Date: 01/28/21 10:45 Actual Procedures p Laparoscopic Converted to Open Cholecystectomy with Intraoperative Cholangiogram and Removal Of Cholecystostomy Tube - Bryce Brown MD Physical Therapy Treatment Note M2 PT-IP Current Condition Start: 01/30/21 15:59 Freq: NEEDED Status: Active Protocol: Document 01/30/21 14:00 AB (Rec: 01/30/21 16:15 AB [id number]) Physical Therapy Current Condition Current Condition Evaluation Date 01/30/21 Treatment Diagnosis s/p cholecystectomy; difficulty in walking Onset Date 01/29/21 Precautions Abdominal Surgery Precautions Log Roll,Lifting Restrictions, Gait Belt above Incisional Area M3 PT-IP Subjective Start: 01/30/21 15:59 Freq: NEEDED Status: Active Protocol: Document 01/31/21 15:21 LJ (Rec: 01/31/21 15:37 [id number]) Subjective Physical Therapy Visit Type Type Treatment Note Visit Start Time 14:55 Visit Stop Time 13:11 Total Visit Minutes 16 Number of [employer] Visits 1 Physical Therapy Visit Comments Patient Comments pt is agreeable to do PT Therapy Pain Assessment Pain When Pain Assessed At Rest Pain Present Pain Present Denied Pain M4 PT-IP Mobility and Gait Start: 01/30/21 15:59 Freq: NEEDED Status: Active Protocol: Document 01/31/21 15:21 LJ (Rec: 01/31/21 15:37 [id number]) PT-Bed Mobility Assessment Rolling Type of Rolling Log Rolling Level of Assist Standby Assistance Supine to Sit Supine to Sit Standby Assistance PT-Transfer Assessment Sit to and From Stand Sit to and from Stand Standby Assistance,1 Person Assistance,Use of Upper Extremities Equipment Transfer Assistive Device Gait Belt,Front Wheeled Walker Orthotic/Prosthetic Devices or Brace: No Transfers Transfer Destination Chair Transfer Technique ambulated using FWW Transfer Ability Level of Assist Standby Assistance,1 Person Assistance,Use of Upper Extremities Comments Mobility Comments Pt in bed upon arrival. Agreeable to do ambulate in hallway and assess stair climbing ability. Pt SBA for bed mobility, transfers, and gait. Pt ambulated down hallway to stairs, performed stair trial x3 then ambulated back to room total of ~200' SBA. Pt uses FWW properly and has good gait mechanics and posture with FWW. Gait Assessment Gait Gait Assistance Required: Standby Assistance,1 Person Assist Distance (Feet) 200 Able to Maintain Weight Bearing Status Yes During Gait Assistive Devices Assistive Device Gait Belt,Front Wheeled Walker Orthotic/Prosthetic Devices or Brace: No Gait Deviations General Gait Pattern Decreased Stride Length, Decreased Feet Clearance Factors Limiting Gait Function Factors Limiting Gait Function Decreased Activity Tolerance, Decreased Strength,Limited Range of Motion,Pain,Poor Balance Comments Gait Comments pls refer to mobility section for details Stair Climbing Assessment Evaluation Level of Assist On Stairs Standby Assistance Devices Stair Climbing Assistive Devices Right Railing Technique/Endurance Stair Climbing Direction Ascend and Descend Stair Climbing Technique Step to Step Number of Steps Climbed 3 Stair Climbing Set # Repetitions (reps) 3 Comments Stair Climbing Comments Pt uses step-to gait pattern on stairs and left railing. She is careful and mindful of moving slowly. especially when descending stairs. M5 PT-IP Objective Assessments Start: 01/30/21 15:59 Freq: NEEDED Status: Active Protocol: Document 01/30/21 14:00 AB (Rec: 01/30/21 16:15 AB [id number]) Orientation Orientation/Cognition Level of Alertness Alert Orientation Name,Place,Situation Language Function Ability No Deficits Noted Safety Awareness Understands Safety Issues Memory Description No Deficits Noted Gross Range of Motion Lower Extremity ROM Assessment Within Functional Limits Strength Lower Extremity Strength Assessment Within Functional Limits Sensation Assessment Sensation Gross Sensation WNL Muscle Tone Muscle Tone WNL Yes M6 PT-IP Treatment Start: 01/30/21 15:59 Freq: NEEDED Status: Active Protocol: Document 01/31/21 15:21 LJ (Rec: 01/31/21 15:37 LJ [id number]) Physical Therapy Treatment Education Education Provided Precautions,Safety M7 PT-IP Assessment and Plan Start: 01/30/21 15:59 Freq: NEEDED Status: Active Protocol: Document 01/31/21 15:21 LJ (Rec: 01/31/21 15:37 LJ [id number]) PT Summary Assessment and Plan Potential Rehabilitation Potential Good Status of Condition at Evaluation Evolving Summary Impairments Pain,ROM,Strength,Balance, Cognition,Bed Mobility, Transfers,Gait,Activity Tolerance Progress Towards Goals Progressing Toward Goals,Safe For Discharge Assessment Summary Pt requiring SBA for all mobility, transfers, and ambulation with FWW completing 200' feet of hallway ambulation and stair climbing. She did not want to train for ambulation without AD at this time and stated she will use the FWW when arriving at her dt house for the first few days. She has progressed gait distance and demonstrated safety on stairs. With assist at home, she is safe to DC home Goals Bed Mobility Goal Independent Transfer Goal Independent,Front Wheeled Walker Gait Goal Independent,Front Wheel Walker Gait Distance 200 Other Goals improve ambulation without AD 200 ft SBA up/down 19 steps L rail SBA Days to Meet Goals 10 Frequency of Treatment Frequency Of Treatment Once a Day Treatment Plan Physical Therapy Treatment Plan Bed Mobility Training,Transfer Training,Gait Training, Therapeutic Exercise,Balance Retraining,Post Op Education, Discharge Planning,Hot or Cold Pack,Neuromuscular Re-ed, Coordination Retraining Precautions Abdominal Surgery Precautions Log Roll,Lifting Restrictions, Gait Belt above Incisional Area Recommendations To Nursing Amount of Assist Needed 1 Person Assist Discharge Recommendations PT Discharge Recommendations Home with Assistance,Home Health Transportation Needs at Discharge Private Vehicle
[2021-01-31 15:40] VITALS: BP 130/100; PULSE 83; RESP 17; TEMP 36.6; O2SAT 96
[2021-01-31] MEDS: ACETAMINOPHEN 325 MG TABLET 650 MG PO (17:23)
[2021-01-31 20:40] VITALS: BP 148/67; PULSE 78; RESP 16; TEMP 36.4; O2SAT 96
[2021-02-01] VITALS: BP 138/85; PULSE 62; RESP 17; TEMP 36.2; O2SAT 97
[2021-02-01] MEDS: OXYCODONE IR 5 MG TABLET PO ×2 (02:42→08:04)
[2021-02-01 06:08] VITALS: BP 147/75; PULSE 81; RESP 16; TEMP 36.7; O2SAT 94
[2021-02-01 07:51] VITALS: BP 154/74; PULSE 65; RESP 16; TEMP 36.8; O2SAT 95
[2021-02-01] MEDS: ENOXAPARIN 40 MG/0.4 ML SYRINGE SUBCUT (08:04)
[2021-02-01] MEDS: POTASSIUM CHLORIDE 20 MEQ TAB PO (08:05)
[2021-02-01] MEDS: SODIUM CHLORIDE 0.9% FLUSH 10 ML IV (08:05)
[2021-02-01] MEDS: METOPROLOL IR 50 MG TABLET PO (08:06)
--- NOTE | 2021-02-01 10:46 | P.PN_ITS ---
Subjective Subjective Date Patient Seen: 02/01/21 Interval history: patient ready to go home Exam Vital Signs (past 8 hours): - 02/01/21 06:08 02/01/21 07:51 Temperature 98.0 F 98.2 F Pulse Rate 81 65 Respiratory Rate 16 16 Blood Pressure 147/75 H 154/74 H Pulse Oximetry 94 95 Oxygen Delivery Method Room Air Oxygen Flow Rate 0 Narrative Exam Narrative: hernesto in place, incisional tenderness, benign abdomen Objective Labs Result Diagrams: 01/31/21 06:25 01/29/21 05:55 [facility] Medical History (Updated 01/26/21 @ 08:44 by Katie Sargent, RN) Atrophic pancreas Cholangitis Cholecystitis with cholelithiasis History of abdominal pain (11/2020) HTN (hypertension) Hypokalemia (04/19/19) Sepsis (12/19/20) Surgical History (Updated 01/26/21 @ 08:38 by Katie Sargent, RN) History of colon surgery Hx of hysterectomy Family History Mother Pancreatic cancer Daughter Pancreatic cancer Social History marital status: unknown household members: none Smoking Status: Former smoker alcohol intake: never substance use type: does not use Assessment & Plan Assessment & Plan narrative: No postop complications. Discharge home today. [place] out in the office 7-10 days
--- NOTE | 2021-02-01 10:48 | PM.DS.1 ---
History of Present Illness History of Present Illness Date Patient Seen: 02/01/21 Time Patient Seen: 10:48 Chief complaint: SDC Discharge Providers Provider Date of admission: 01/29/21 14:45 Discharge Date: 02/01/21 Consults: 01/28/21 19:25 Consult to Pastoral Services Routine Comment: pt here from out of state visiting daughter 01/30/21 12:53 Consult to Physical Therapy Evaluate & Treat Comment: Physician Instructions: Evaluate and Treat 01/30/21 12:54 Consult to Discharge Planning Routine Comment: Discharge provider: Kaylie Bone MD Summary Status at Discharge Cognitive/behavioral status at discharge: oriented Functional status at discharge: independent ambulation Overall status at discharge: patient is progressing back to baseline Time Spent with Patient Time spent: Less than 30 minutes Exam Vital Signs (past 8 hours): - 02/01/21 06:08 02/01/21 07:51 Temperature 98.0 F 98.2 F Pulse Rate 81 65 Respiratory Rate 16 16 Blood Pressure 147/75 H 154/74 H Pulse Oximetry 94 95 Oxygen Delivery Method Room Air Oxygen Flow Rate 0 Narrative Exam Narrative: benign abdomen, no infection, mild incisional tenderness. Staple in place Objective Labs Result Diagrams: 01/31/21 06:25 01/29/21 05:55 [facility] Medical History (Updated 01/26/21 @ 08:44 by Katie Sargent RN) Atrophic pancreas Cholangitis Cholecystitis with cholelithiasis History of abdominal pain (11/2020) HTN (hypertension) Hypokalemia (04/19/19) Sepsis (12/19/20) Surgical History (Updated 01/26/21 @ 08:38 by Katie Sargent RN) History of colon surgery Hx of hysterectomy Family History Mother Pancreatic cancer Daughter Pancreatic cancer Social History marital status: unknown household members: none Smoking Status: Former smoker alcohol intake: never substance use type: does not use Discharge Plan Discharge Plan Patient Disposition: Home Discharge orders & Medications Prescriptions: New sennosides [senna] 8.6 mg Tablet 17.2 mg PO DAILY Qty: 30 RF: 0 acetaminophen 325 mg Tablet 650 mg PO Q6HR PRN (Reason: Pain, Mild (1-3)) Qty: 50 RF: 0 docusate sodium [DOK] 100 mg Capsule 100 mg PO BID PRN (Reason: Constipation) Qty: 10 RF: 0 oxycodone 5 mg Tablet 5 mg PO Q4HR PRN (Reason: Pain, Moderate (4-6)) Qty: 10 RF: 0 oxycodone 5 mg capsule 5 mg PO Q6H PRN (Reason: pain) Qty: 10 RF: 0 Continued metoprolol tartrate 50 mg tablet 50 mg PO BID RF: 0 aspirin [Adult Aspirin Regimen] 81 mg tablet,delayed release (DR/EC) 81 mg PO DAILY RF: 0 potassium chloride [Klor-Con M20] 20 mEq Tablet,Er Particles/Crystals 20 meq PO DAILY RF: 0 Visit Report/Discharge Packet Instructions: DI for Open Cholecystectomy, DI for Laparoscopy, DI for Prescription Opioid Use, Oxycodone, [facility]: Wound Care
--- NOTE | 2021-02-01 12:07 | PC.NURSE ---
Discharge instructions reviewed with patient and her daughter, they state understanding and have no further questions or concerns at this time. Patient tolerating her diet, had BM post surgery, voiding without difficulty and pain is well controlled/managed with tylenol and oxycodone as ordered. Patient feels ready for discharge.IV dc'd intact. Patient states she thinks she has follow up appointment scheduled but will call the office on tuesday to confirm/schedule. Escorted out via wheelchair with all her belongings to home with her family.
== END 2021-02-01 12:11 | disposition home or self-care (01) | DRG 415 ==
LOC: OR 09:37 → AC 01-29 15:18
PROVIDERS: Admitting Provider Specialist; Referring Provider Specialist; Visit Provider Specialist
PROC: 0FT44ZZ Resection of Gallbladder, Percutaneous Endoscopic Approach (ICD-10-PCS; CPT 47562; principal; 2021-01-28 10:45)
DX: K80.10 Calculus of gallbladder with chronic cholecystitis without obstruction (principal); K83.09 Other cholangitis; K82.8 Other specified diseases of gallbladder; I10 Essential (primary) hypertension; Z87.891 Personal history of nicotine dependence; Z20.822 Contact with and (suspected) exposure to COVID-19
CPT/HCPCS: 36415; 47605; 74300; 76000; 80053; 83735; 85025; 87070; 87075; 87205; 87635; 97116; 97162; C9803; G0378; J0690; J1100; J1170; J1650; J2250; J2405; J2704; J3010; J3410